=== PATIENT | female | born 1935 | race Caucasian/White ===

== ENCOUNTER 2016-10-05 14:31 | Emergency (ER) | payer OTHER ==
--- NOTE | ~2016-10-05 | CT4 ---
[facility] A Service of [facility] RADIOLOGY TEXT RESULTS PATIENT: TOAN HERNANDEZ LOCATION: [facility] : 37 UNIT #: [id number] AGE: [address]: Vance Andujar MD SEX: F ORDER DR: [id number] [facility] [address] [place], [place] [address] [id number] MR#: [id number] #: [id number] NAME: TOAN HERNANDEZ. : 1935 SEX: F STUDY DATE/TIME: 10/05/2016 17:42 UNIT: [facility] ROOM: STUDY DESCRIPTION: CT Abd and Pelv Wo Cont Attending Physician: Vance Andujar M.D. Ordering Physician: Vance Andujar M.D. Primary Care Physician: Hemanth Peres M.D. MEDICAL IMAGING REPORT This report is preliminary unless electronic signature is present EXAM CT abdomen and pelvis without contrast. HISTORY Abdomen pain and vomiting and diarrhea today. TECHNIQUE This CT exam was performed with one or more of the following radiation dose reduction techniques: automatic exposure control, adjustment of mA and/or kV according to patient size, and iterative reconstruction. FINDINGS CT abdomen and pelvis was performed without contrast. CT ABDOMEN. Pericardial effusion measures up to 1.6 cm along the right cardiac margin. Multiple hepatic cysts measure up to 3.6 cm in the hepatic dome. There are smaller cysts in the right and left hepatic lobes. There are extensive bilateral renal cysts, and renal parenchymal calcifications bilaterally. Several hyperdense subcentimeter renal cysts bilaterally, likely hemorrhagic or proteinaceous. There is a 4 mm nonobstructing stone in the lower pole of the left kidney. No perinephric stranding. The spleen, pancreas, gallbladder, and adrenal glands are normal. No bowel dilatation. No ascites. No inflammatory stranding. CT PELVIS. Moderate diffuse colonic diverticulosis, greater in the sigmoid colon. No diverticulitis. No free fluid. Hysterectomy. Urinary bladder is normal. Normal appendix. IMPRESSION [facility] A Service of [facility] RADIOLOGY TEXT RESULTS PATIENT: TO[facility] HER[facility]DEZ [id number] 37 UNIT #: [id number] AGE: [address]: Vance Andujar MD SEX: F ORDER DR: 1. No acute findings in the abdomen or pelvis. 2. No urinary obstruction or bowel obstruction. Normal appendix. 3. Multiple hepatic cysts and extensive bilateral renal cysts including hemorrhagic or proteinaceous subcentimeter renal cysts bilaterally. 4. 4 mm nonobstructing stone in the lower pole of the left kidney. 5. Diffuse colonic diverticulosis, most extensive in the sigmoid colon. 6. Pericardial effusion measures up to 1.6 cm along the right cardiac margin. Dictated by... Fito Grace M.D. THIS IS AN ELECTRONICALLY VERIFIED REPORT Fito Grace M.D. at 10/05/2016 11:20 PM KEISHA/dustin TD: 10/05/2016 21:19 JOB #: [id number] MEDICAL IMAGING REPORT Page 1 of 1 COPY
--- NOTE | ~2016-10-05 | EKG ---
PATIENT: TOAN HERNANDEZ UNIT #: [id number] Ventricular Rate: 57 BPM Atrial Rate: 57 BPM P-R Interval: 174 ms QRS Duration: 86 ms Q-T Interval: 478 ms QTC Calculation(Bezet): 465 ms P [place]: 77 degrees Calculated R [place]: -33 degrees Calculated T [place]: 77 degrees Diagnosis Line: Sinus bradycardia with occasional Premature Diagnosis Line: ventricular complexes Diagnosis Line: Left axis deviation Diagnosis Line: Cannot rule out Inferior infarct (cited on or Diagnosis Line: before 13-NOV-2010) Diagnosis Line: Cannot rule out Anterior infarct , age Diagnosis Line: undetermined Diagnosis Line: Abnormal ECG Diagnosis Line: When compared with ECG of 13-NOV-2010 07:17, Diagnosis Line: Premature ventricular complexes are now Present Diagnosis Line: Confirmed by BERE PRETTY MD ([id number]) on 10/06/2016 Diagnosis Line: 6:02:15 PM INTERPRETING MD: SUKHWINDER CARRION
[~2016-10-05 14:31] MED LIST: ACTOS PO; ALPRAZOLAM PO; ALPRAZOLAM0.5 MG PO; ARICEPT5 M1 PO; ATACAND PO; ATORVASTATIN CA10 MG PO; CALTRATE 600+D PO; CANDESARTAN CIL32 MG PO; CARVEDILOL6.25 MG PO; CENTRUM PO; HYDROCHLOROTH12.5 MG PO; LIPITOR PO; METFORMIN HCL500 M1; NIFEDIPINE ER PO; NITROFURANTOIN100 M3 PO; SERTRALINE HCL25 MG PO; TOPROL XL PO; ZYRTEC10 M2 PO
[2016-10-05 15:13] LABS: BASOPHIL# 0.1 X10e3 (0-0.3); BASOPHIL% 0.7 % (0-2.5); EOSINOPHIL# 0.1 X10e3 (0-0.7); HEMATOCRIT 37.9 % (35.0-45.0); HEMOGLOBIN 12.4 gm/dL (12.0-16.0); LYMPHOCYTE# 1.3 X10e3 (1.0-3.5); LYMPHOCYTE% 14.1 % (17.0-45.0); MEAN CELL VOLUME 87.3 FL (83-96); MEAN CORPUSCULAR HEMOGLOBIN 28.5 PG (28-34); MEAN CORPUSCULAR HGB CONC 32.6 g/dL (30-36); MEAN PLATELET VOLUME 8.1 FL (6.5-11.5); MONOCYTE# 0.5 X10e3 (0-1.0); MONOCYTE% 5.6 % (3.0-12.0); NEUTROPHIL# 7.1 X10e3 (1.5-7.1); NEUTROPHIL% 78.6 % (40-75); PLATELET COUNT 163 X10e3 (140-420); RED BLOOD COUNT 4.34 X10e (3.90-5.30); RED CELL DISTRIBUTION WIDTH 12.9 % (11.0-15.5)
[2016-10-05 15:22] LABS: DIFF IND NO
[2016-10-05 15:48] LABS: ALBUMIN SERUM 4.4 g/dL (3.5-5.0); BILIRUBIN, DIRECT 0.1 mg/dL (0.0-0.2); BILIRUBIN,TOTAL 1.1 mg/dL (0.2-2.0); BUN/CREATININE RATIO 23.07; CALCIUM SERUM 9.3 mg/dL (8.4-10.2); CREATININE SERUM 1.3 mg/dL (0.6-1.4); POTASSIUM 3.7 mmol/L (3.5-5.1); PROTEIN TOTAL SERUM 7.8 g/dL (6.0-8.3)
[2016-10-05 18:20] LABS: POC - CKMB 1.1 ng/mL (0.0-7.9); POC - TROPONIN <0.05 ng/mL (<=0.05)
[2016-10-05 18:22] LABS: URINE SOURCE CLEAN CATCH
[2016-10-05 18:32] LABS: URINE APPEARANCE CLEAR; URINE BILIRUBIN NEG (NEG); URINE BLOOD NEG (NEG); URINE COLOR YELLOW; URINE GLUCOSE NEG (NEG); URINE KETONE NEG (NEG); URINE LEUKOCYTE ESTERASE NEG (NEG); URINE NITRATE NEG (NEG); URINE PROTEIN NEG (NEG); URINE SPECIFIC GRAVITY 1.009 (1.003-1.035); URINE UROBILINOGEN 0.2 MG/DL (NEG)
[2016-10-05 18:55] LABS: CULTURE INDICATED? NO
== END 2016-10-05 19:11 | disposition home or self-care (01) ==
LOC: CED 14:31
PROVIDERS: Emergency Medicine
DX: R11.10 Vomiting, unspecified (principal); R10.9 Unspecified abdominal pain; F03.90 Unspecified dementia, unspecified severity, without behavioral disturbance, psychotic disturbance, mood disturbance, and anxiety; Z88.2 Allergy status to sulfonamides; Z88.8 Allergy status to other drugs, medicaments and biological substances
CPT/HCPCS: 51701; 74176; 80048; 80076; 81003; 82553; 83690; 84484; 85025; 93005; 96360; 99284; J2405